=== PATIENT | female | born 1980 | race African-American/Black ===

== ENCOUNTER → 2018-01-03 | Day surgery (SDC) | payer BC ==
[~2018-01-03] MED LIST: ALPRAZOLAM 0.25 MG TAB PO NR; BENADRYL25 M1 PO; BUPIVACAINE 0.25%/EPI 30ML SDV INJ ONE; DEXAMETHASONE SOD PHOS INJ 4 MG/ML VIAL ONE; FENTANYL CITRATE/PF 100MCG/2 ML INJ ONE; GLYCOPYRROLATE INJ 1MG/ 5 ML SYR ONE; LIDOCAINE HCL 2% LOCAL INJ 5 ML SDV VIAL INJ ONE; LOSARTAN POTAS100 MG PO; MIDAZOLAM HCL 2 MG/2 ML VIAL ONE; NEOSTIGMINE 5 MG/5ML SYR ONE; ONDANSETRON HCL INJ 2 MG/ML VIAL ONE; PROPOFOL IV EMULSION 10 MG/ML 20 ML VIAL ONE; ROCURONIUM BROMIDE 10 MG/ML 5ML VIAL ONE; SEVOFLURANE INHAL SOLN 250 ML PEN BTL ONE; XANAX0.25 MG PO
--- OUTSIDE RECORDS SUMMARY | 2018-01-03 10:46 | XMS REPORT | Clinical Summary ---
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 09/25/2017 methocarbamol (ROBAXIN) Take 2 50 tablet 0 500 MG tablet tablets 8 (1,000 mg total) by mouth 4 (four) times a day for 10 days. PRN spasm 10/15/2017 metoprolol tartrate Take 1 tablet 30 tablet 0 (LOPRESSOR) 25 mg tablet (25 mg total) 8 by mouth daily for 30 days. Active Problems Not on file Encounters Care Team Description Date Type Specialty Raza Duran MD Tension headache (Primary Dx); Hypertension, unspecified type; Anxiety 09/15/2017 Emergency Emergency Medicine after 01/02/2017 Social History Date Tobacco Use Types Packs/Day Years Used Never Smoker Alcohol Use Drinks/Week oz/Week Comments Yes Sex Assigned at Date Recorded Not on file Industry Job Start Date Occupation Not on file Not on file Not on file Travel End Travel History Travel Start No recent travel history available. Last Filed Vital Signs Time Taken Vital Sign Reading 09/15/2017 8:29 AM CDT Blood Pressure 143/90 09/15/2017 8:29 AM CDT Pulse 72 09/15/2017 8:29 AM CDT Temperature 36.4 C (97.6 F) 09/15/2017 8:29 AM CDT Respiratory Rate 18 09/15/2017 8:29 AM CDT Oxygen Saturation 98% - Inhaled Oxygen - Concentration 09/15/2017 6:48 AM CDT Weight 109 kg (240 lb) 09/15/2017 6:48 AM CDT Height 172.7 cm (5' 8") 09/15/2017 6:48 AM CDT Body Mass Index 36.49 Plan of Treatment Not on file Procedures Comments Procedure Name Priority Date/Time Associated Diagnosis ECG ED PRELIMINARY Routine 09/15/2017 INTERPRETATION 7:29 AM CDT ECG 12-LEAD Routine 09/15/2017 7:02 AM CDT after 01/02/2017 Results * ECG ED Preliminary Interpretation - NOT AN ORDER (09/15/2017 7:29 AM CDT) Narrative Performed At Raza Duran MD 09/15/20178:39 AM ECG ED Preliminary Interpretation - Not an Order Performed by: RAZA DURAN Authorized by: RAZA DURAN ECG reviewed by ED Physician in the absence of a accounting professor: yes Previous ECG: Previous ECG:Unavailable Interpretation: Interpretation: normal Rate: ECG rate:80 ECG rate assessment: normal Rhythm: Rhythm: sinus rhythm Ectopy: Ectopy: none QRS: QRS axis:Normal Conduction: Conduction: normal ST segments: ST segments:Normal T waves: T waves: flattening Flattening:III Comments: No STEMI or S1Q3T3 * ECG 12 lead (09/15/2017 7:02 AM CDT) Ventricular rate 77 [facility] Atrial rate 77 [facility] NE interval 128 [facility] QRSD interval 84 [facility] QT interval 386 [facility] QTC interval 436 [facility] P axis 1 51 [facility] QRS axis 1 51 [facility] T wave axis 25 [facility] EKG impression Normal sinus rhythm-Normal [facility] ECG-No previous ECGs available- Performing Organization Address City/State/Zipcode Phone Number [facility] [id number] [place] [address] after 01/02/2017 Insurance Payer Benefit Subscriber ID Type Phone Address Plan / Group BCBS BCBS xxxxxxxxxxxx PPO CHOICE PPO/[employer] EMPL PPO Advance Directives Patient has advance care planning documents on file. For more information, reji ahumada contact: Hussain Jama [address] [place] [address]
[2018-01-03 11:51] LABS: BASOPHILS % 0.6 % (0.0-1.0); EOSINOPHILS # (AUTO) 0.1 (0.0-0.4); HEMATOCRIT 40.6 % (34.2-44.1); HEMOGLOBIN 12.7 g/dL (12.0-16.0); LYMPHOCYTES # (AUTO) 2.4 (1.0-3.2); LYMPHOCYTES % 36.9 % (18.0-39.1); MEAN CORPUSCULAR HGB CONC 31.3 g/dL (31-35); MEAN CORPUSCULAR VOLUME 83.2 fL (81-99); MONOCYTES # (AUTO) 0.6 (0.2-0.8); MONOCYTES % 8.6 % (4.4-11.3); NEUTROPHILS # (AUTO) 3.4 (2.1-6.9); NEUTROPHILS % 51.7 % (38.7-80.0); PLATELET COUNT 200 x10e3/uL (140-360); RED BLOOD COUNT 4.88 x10e6/uL (3.6-5.1); RED CELL DISTRIBUTION WIDTH 14.2 % (11.7-14.4)
[2018-01-03 12:32] LABS: ALANINE AMINOTRANSFERASE 20 IU/L (0-55); ALBUMIN 3.6 g/dL (3.5-5.0); ALBUMIN/GLOBULIN RATIO 0.9 (0.8-2.0); ALKALINE PHOSPHATASE 58 IU/L (40-150); ANION GAP 14.1 mmol/L (8-16); BLOOD UREA NITROGEN 10 mg/dL (7-26); BUN/CREATININE RATIO 11 (6-25); CALCIUM 9.3 mg/dL (8.4-10.2); CARBON DIOXIDE 23 mmol/L (22-29); CHLORIDE 104 mmol/L (98-107); CREATININE, SERUM 0.87 mg/dL (0.57-1.11); EST GLOMERULAR FILTRATION RATE > 60 ML/MIN (60-); GLUCOSE 94 mg/dL (74-118); POTASSIUM 4.1 mmol/L (3.5-5.1); SODIUM 137 mmol/L (136-145)
[2018-01-03 15:00] VITALS: BP 150/83
--- NOTE | 2018-01-03 16:01 | Operative Report ---
DATE OF PROCEDURE: January 03, 2018 PREOPERATIVE DIAGNOSIS: Requesting sterilization. POSTOPERATIVE DIAGNOSIS: Requesting sterilization. PROCEDURE: Laparoscopic bilateral tubal ligation. COMPLICATIONS: None. ESTIMATED BLOOD LOSS: Minimal. The patient was taken to the OR and anesthesia was placed. She was prepped and draped in the normal sterile fashion. Placed in the dorsal lithotomy position. After examination under anesthesia, a [place]ka self-retaining uterine manipulator was passed through the cervix into the uterine cavity. Gloves were changed and an infraumbilical skin incision was made with the scalpel, about 5 mm, and 5 mm bladeless trocar and cannula was passed through the abdominal wall into the abdominal cavity under direct visualization. Trocar was removed and the scope was inserted through the sleeve and into the abdominal cavity. Abdomen was inflated with carbon dioxide gas. The patient was placed in Trendelenburg position. Another port was made in the right lower quadrant about 8 mm, and skin incision was made with the scalpel. An 8 mm bladeless trocar and cannula was passed through the abdominal wound into the abdominal cavity under direct visualization. Trocar was removed. Using the grasper with visualization of the tubes and the ovaries, Fulci clips were applied across the fallopian tube on each side of the uterus without difficulty. The upper abdomen was grossly normal. Instruments were removed from the abdomen. The abdomen was deflated. The skin at the umbilicus was approximated using Vicryl 3-0 and Dermabond was applied at both sides. The patient tolerated the procedure well. Lap, needle and sponge counts were correct times 2 at the end of the procedure. Job#: [id number]
== END | disposition home or self-care (01) ==
LOC: OR 10:43
PROVIDERS: ATTEND Obstetrics & Gynecology
DX: Z30.2 Encounter for sterilization (principal); I10 Essential (primary) hypertension; F41.9 Anxiety disorder, unspecified; Z88.1 Allergy status to other antibiotic agents; Z88.5 Allergy status to narcotic agent
CPT/HCPCS: 36415; 58671; 80053; 84702; 85025; 93005; J1100; J2001; J2250; J2405; J2704; J3490